=== PATIENT | male | born 1995 | race Caucasian/White ===

== ENCOUNTER 2023-03-14 21:32 | Emergency (ER) | payer OTHER ==
[2023-03-14] MEDS ORDERED: LIDOCAINE 1% MDV 20ML VIAL SC ONE (22:35)
[2023-03-14] MEDS ORDERED: BACITRACIN OINTMENT 30GM TUBE TOP ONE (23:10)
[2023-03-14] MEDS ORDERED: BOOSTRIX VACCINE (TETANUS/DIPHTH/ACEL. PERTUSSIS) 0.5ML SYR IM.IMMUN ONE (23:15)
[2023-03-14 23:38] VITALS: BP 138/77; TEMP 98; O2SAT 99
== END 2023-03-14 23:40 | disposition home or self-care (01) ==
LOC: M ED 21:32
DX: S61.213A Laceration without foreign body of left middle finger without damage to nail, initial encounter (principal); Y99.8 Other external cause status; Y93.89 Activity, other specified; Y92.9 Unspecified place or not applicable; Z91.013 Allergy to seafood; X58.XXXA Exposure to other specified factors, initial encounter

== ENCOUNTER 2023-03-21 05:31 | Emergency (ER) | payer OTHER ==
[~2023-03-21] VITALS: Ht 185.4 cm; Wt 90.0 kg
[2023-03-21 05:59] VITALS: BP 139/75; TEMP 98; O2SAT 96
== END 2023-03-21 06:00 | disposition home or self-care (01) ==
LOC: M ED 05:31
DX: Z48.02 Encounter for removal of sutures (principal)

== ENCOUNTER → 2023-04-02 | Outpatient (CLI) | payer OTHER | LOC: M SOG 09:48 | PROVIDERS: ATTEND Physician Assistant | DX: M79.642 Pain in left hand (principal) ==

== ENCOUNTER 2023-10-07 21:40 | Emergency (ER) | payer OTHER ==
[~2023-10-07] VITALS: Ht 185.4 cm; Wt 81.8 kg
[2023-10-07 22:18] LABS: BASO # 0.1 10^3/uL (0.0-0.2); BASO % 0.5 % (0.0-1.0); EOS # 0.1 10^3/uL (0.0-0.5); EOS % 1.3 % (0.0-3.0); HEMATOCRIT 43.2 % (42.0-52.0); HEMOGLOBIN 14.8 g/dl (13.5-17.5); LYMPH # 2.3 10^3/uL (1.5-5.0); LYMPH % 23.9 % (24.0-44.0); MEAN CORPUSCULAR HEMOGLOBIN 29.7 pg (27.0-33.0); MEAN CORPUSCULAR HGB CONC 34.3 g/dl (32.0-36.5); MEAN CORPUSCULAR VOLUME 86.6 fl (80.0-96.0); MONO # 0.6 10^3/uL (0.0-0.8); MONO % 6.7 % (2.0-8.0); NEUTROPHILS # 6.3 10^3/uL (1.5-8.5); NEUTROPHILS % 67.3 % (36.0-66.0); PLATELET COUNT, AUTOMATED 239 10^3/uL (150-450); RED BLOOD COUNT 4.99 10^6/uL (4.30-6.10); WHITE BLOOD COUNT 9.4 10^3/uL (4.0-10.0)
[2023-10-07 22:55] LABS: ALBUMIN 4.7 G/DL (3.2-5.2); ALKALINE PHOSPHATASE 49 U/L (46-116); ALT/SGPT 37 U/L (7.0-40); AST/SGOT 24 U/L (<34); BILIRUBIN,TOTAL 0.8 MG/DL (0.3-1.2); BLOOD UREA NITROGEN 33 MG/DL (9-23); CARBON DIOXIDE LEVEL 25 MMOL/L (20-31); CHLORIDE LEVEL 106 MMOL/L (98-107); CREATININE FOR GFR 1.25 MG/DL (0.70-1.30); GLOMERULAR FILTRATION RATE > 60.0 (>60); GLUCOSE, FASTING 87 MG/DL (60-100); POTASSIUM SERUM 4.2 MMOL/L (3.5-5.1); SODIUM LEVEL 139 MMOL/L (136-145); TOTAL PROTEIN 7.4 G/DL (5.7-8.2)
[2023-10-07 22:57] LABS: HEPATITIS B SURFACE ANTIBODY NEGATIVE (POSITIVE)
[2023-10-07 23:09] LABS: HEPATITIS B SURFACE ANTIGEN NEGATIVE (NEGATIVE)
[2023-10-07 23:22] LABS: HIV 1&2 SCREEN NEGATIVE (NEGATIVE)
[2023-10-07 23:30] LABS: HEPATITIS C VIRUS ABY INDEX < 0.02 INDEX (<0.8)
[2023-10-07 23:45] VITALS: BP 127/71; TEMP 98.2; O2SAT 99
== END 2023-10-07 23:45 | disposition home or self-care (01) ==
LOC: M ED 21:40
DX: Z77.21 Contact with and (suspected) exposure to potentially hazardous body fluids (principal); S60.512A Abrasion of left hand, initial encounter; S60.511A Abrasion of right hand, initial encounter; Y92.410 Unspecified street and highway as the place of occurrence of the external cause; Y93.9 Activity, unspecified; Y99.0 Civilian activity done for income or pay; Z91.013 Allergy to seafood

== ENCOUNTER → 2023-10-30 | Outpatient (REF) | payer OTHER ==
[2023-10-30 14:38] LABS: SEMEN APPEARANCE OPAQUE (OPAQUE); SEMEN VISCOSITY LIQUID (LIQUID)
[2023-10-30 14:39] LABS: SEMEN pH 8.5 (7.0-8.0); SPERM CONCENTRATION 127.4 M/ml (>=15.0); WBC CONCENTRATION <=1 M/ml (<=1 M/ml)
== END ==
LOC: M LAB REF 14:16
PROVIDERS: ATTEND Obstetrics & Gynecology
DX: Z31.41 Encounter for fertility testing (principal)